=== PATIENT | female | born 1950 | race Caucasian/White ===

== ENCOUNTER 2017-08-08 00:03 | Emergency (ER) | payer MEDICARE, OTHER ==
[2017-08-08] MEDS ORDERED: oxyCODONE/Acetamin 5/325 MG* TAB PO ONE (01:44)
[2017-08-08 02:05] LABS: ABS Basophils 0 10^3/ul (0-0.2); ABS Eosinophils 0 10^3/ul (0-0.6); ABS Lymphocytes 0.4 10^3/ul (1.0-4.8); ABS Monocytes 0.2 10^3/ul (0-0.8); ABS Neutrophils 3.9 10^3/ul (1.5-7.7); ABS Nucleated RBC 0 10^3/ul; Eosinophil % 0.4 % (0-6); Hematocrit 40 % (35-47); Hemoglobin 13.8 g/dl (12.0-16.0); Lymphocyte % 7.8 % (25-47); Mean Corpuscular HGB Conc 35 g/dl (31-36); Mean Corpuscular Hemoglobin 32 pg (27-31); Mean Corpuscular Volume 93 fL (80-97); Mean Platelet Volume 9 um3 (7.4-10.4); Nucleated Red Blood Cells % 0.1; Platelet Count 190 10^3/ul (150-450); Red Blood Count 4.27 10^6/ul (4.0-5.4); Red Cell Distribution Width 13 % (10.5-15); White Blood Count 4.5 10^3/ul (3.5-10.8)
[2017-08-08 02:21] LABS: EGFR Non-African American 56.1 (>60)
[2017-08-08] MEDS ORDERED: Butalb/Acetamin/Caff TAB* 1 TAB PO ONE (03:07)
--- NOTE | 2017-08-08 03:12 | ED ---
Mathew Snyder Angela, scribed for Kelvin Eng on 08/08/17 at 0149 . Headache - HPI Summary HPI Summary: This pt is a 67 y/o female presenting to [facility] c/o headache since yesterday. Pt reports she has a stabbing pain in the posterior aspect of her head, once every 10 seconds. She states she has taken acetaminophen with mild relief, her pain would subside but would come back. She additionally reports left ear ache intermittently, fever. Pt went to see her PCP 3 days ago and was diagnosed with a UTI. Pt was placed on Bactrim and then on Amoxicillin. She denies chest pain, SOB, abd pain. Allergic to ibuprofen. Pt is not anticoagulants. - History Of Current Complaint Chief Complaint: EDHeadache Stated Complaint: HEAD PAIN Hx Obtained From: Patient Onset/Duration: Started days ago - 1, Still Present Currently Pain Is: Moderate Timing: Days - 1 Character: Sharp - stabbing Location of Headache: Occipital Aggravating Factor: Nothing Allevating Factors: Nothing Associated Signs And Symptoms: Fever, Other (Noted In Comments) - left ear ache intermittently. NEG: SOB, chest pain, abd pain - Allergies/Home Medications Allergies/Adverse Reactions: Allergies Allergy/AdvReac Type Severity Reaction Status Date / Time ibuprofen Allergy Abdominal Verified 08/08/17 00:15 Pain PMH/Surg Hx/FS Hx/Imm Hx Endocrine/Hematology History: Denies: Hx Diabetes Cardiovascular History: Denies: Hx Hypertension Infectious Disease History: No Infectious Disease History: Denies: Traveled Outside the [place] in Last 30 Days - Family History Known Family History: Positive: Cardiac Disease - Social History Alcohol Use: None Substance Use Type: Reports: None Smoking Status (MU): Never Smoked Tobacco Review of Systems Positive: Fever Positive: Ear Ache - left Negative: Chest Pain Negative: Shortness Of Breath Negative: Abdominal Pain Positive: Headache All Other Systems Reviewed And Are Negative: Yes Physical Exam - Summary Physical Exam Summary: Appearance: Well appearing, no pain distress Skin: warm, dry, reflects adequate perfusion Head/face: normal Eyes: EOMI, JAYLIN ENT: normal Neck: supple, nontender Respiratory: CTA, breath sounds present Cardiovascular: RRR, pulses symmetrical Abdomen: nontender, soft Bowel: present Musculoskeletal: normal, strength/ROM intact Neuro: normal, sensory motor intact, A&Ox3 Triage Information Reviewed: Yes Vital Signs On Initial Exam: Initial Vitals Temp Pulse Resp BP Pulse Ox 99.8 F 95 20 130/74 96 08/08/17 00:15 08/08/17 00:15 08/08/17 00:15 08/08/17 00:15 08/08/17 00:15 Vital Signs Reviewed: Yes - [place] Coma Scale Best Eye Response: 4 - Spontaneous Best Motor Response: 6 - Obeys Commands Best Verbal Response: 5 - Oriented Coma Scale Total: 15 Diagnostics - Vital Signs Vital Signs Temp Pulse Resp BP Pulse Ox 08/08/17 00:15 99.8 F 95 20 130/74 96 - Laboratory Lab Results: Lab Results 08/08/17 08/08/17 08/08/17 Range/Units 01:16 01:16 01:16 WBC 4.5 (3.5-10.8) 10^3/ul RBC 4.27 (4.0-5.4) 10^6/ul Hgb 13.8 (12.0-16.0) g/dl Hct 40 (35-47) % MCV 93 (80-97) fL MCH 32 H (27-31) pg MCHC 35 (31-36) g/dl RDW 13 (10.5-15) % Plt Count 190 (150-450) 10^3/ul MPV 9 (7.4-10.4) um3 Neut % (Auto) 85.7 H (38-83) % Lymph % (Auto) 7.8 L (25-47) % [place] % (Auto) 5.0 (0-7) % Eos % (Auto) 0.4 (0-6) % Baso % (Auto) 1.1 (0-2) % Absolute Neuts (auto) 3.9 (1.5-7.7) 10^3/ul Absolute Lymphs (auto) 0.4 L (1.0-4.8) 10^3/ul Absolute Monos (auto) 0.2 (0-0.8) 10^3/ul Absolute Eos (auto) 0 (0-0.6) 10^3/ul Absolute Basos (auto) 0 (0-0.2) 10^3/ul Absolute Nucleated RBC 0 10^3/ul Nucleated RBC % 0.1 INR (Anticoag Therapy) 1.00 (0.77-1.02) APTT 30.1 (26.0-36.3) seconds Sodium 137 (133-145) mmol/L Potassium 3.8 (3.5-5.0) mmol/L Chloride 104 (101-111) mmol/L Carbon Dioxide 25 (22-32) mmol/L Anion Gap 8 (2-11) mmol/L BUN 12 (6-24) mg/dL Creatinine 0.99 H (0.51-0.95) mg/dL Est GFR ( Amer) 72.2 (>60) Est GFR (Non-Af Amer) 56.1 (>60) BUN/Creatinine Ratio 12.1 (8-20) Glucose 115 H (70-100) mg/dL Calcium 9.2 (8.6-10.3) mg/dL Total Bilirubin 0.40 (0.2-1.0) mg/dL AST 19 (13-39) U/L ALT 12 (7-52) U/L Alkaline Phosphatase 51 (34-104) U/L Total Protein 6.9 (6.4-8.9) g/dL Albumin 4.1 (3.2-5.2) g/dL Globulin 2.8 (2-4) g/dL Albumin/Globulin Ratio 1.5 (1-3) Result Diagrams: 08/08/17 01:16 08/08/17 01:16 Lab Statement: Any lab studies that have been ordered have been reviewed, and results considered in the medical decision making process. - CT Brain CT CT Interpretation: No Acute Changes - IMPRESSION: No evidence of acute pathology. Dr. Eng has reviewed this radiology report. CT Interpretation Completed By: Radiologist Headache Course/Dx - Course Course Of Treatment: Pt is a 67 y/o female, with recent dx of UTI and on antibiotics, who presents with a headache since yesterday. Pt reports she has a stabbing pain in the posterior aspect of her head, once every 10 seconds. Bloodwork and brain CT were obtained. Head CT is negative. Pt will be discharged to home with follow up from her PCP. She will be given a prescription for Fioricet. - Diagnoses Differential Diagnosis/HQI/PQRI: CVA, Subdural Hematoma, Migraine, Sinus Headache, Subarachnoid Hemorrhage, Tension Headache Provider Diagnoses: Headache Discharge - Discharge Plan Condition: Stable Disposition: HOME Prescriptions: Butalb/Acetamin/Caff TAB* [Fioricet TAB*] 1 tab PO Q6H PRN #20 tab MDD 3 PRN Reason: Pain Patient Education Materials: General Headache (ED) Referrals: Anastacia Beck MD [Primary Care Provider] - 3 Days Additional Instructions: Please follow up with your primary care provider in 3 days. RETURN TO THE ED FOR ANY WORSENING SYMPTOMS. The documentation as recorded by the Mathew nixon Angela accurately reflects the service I personally performed and the decisions made by Albertina martell Emmanuel.
[2017-08-08 03:32] VITALS: BP 100/59
--- NOTE | 2017-08-08 08:11 | RAD ---
INDICATION: Headache COMPARISON: None. TECHNIQUE: Contiguous axial sections of the brain were obtained from the skull base to the vertex without contrast. FINDINGS: The ventricles, cisterns and sulci are within normal limits. The hirsch-white matter differentiation is adequately maintained and there is no sulcal effacement. No significant focal abnormality or mass effect is present. There is no evidence for intracranial hemorrhage. No significant focal osseous abnormality is present. The visualized portion of the paranasal sinuses appear clear. The mastoid air cells are well aerated bilaterally. IMPRESSION: Normal CT of the brain.
== END 2017-08-08 03:32 | disposition home or self-care (01) ==
LOC: ED 00:03
DX: R51 Headache (principal); R50.9 Fever, unspecified; H92.02 Otalgia, left ear
CPT/HCPCS: 36415; 70450; 80053; 85025; 85610; 85730; 99283; A9270-GY

== ENCOUNTER 2021-03-22 08:34 | Inpatient (IN) ==
[~2021-03-22 08:34] MED LIST: Buffered Lidocaine 1% SYRIN 1 ml INTRADERM ONE; Lactated Ringers 1000 ml BAG 1,000 ML IV SCH
[2021-03-22] MEDS ORDERED: Heparin 5000 UNITS/ML 1 mL VIAL ONE (08:57)
[2021-03-22] MEDS ORDERED: Midazolam 2 mg/2 ml VIAL 1 mg/ml 2 ml VIAL (2 mg) ONE (08:57)
[2021-03-22] MEDS ORDERED: Lidocaine 2% PF 5 ML VIAL ONE (09:01)
[2021-03-22] MEDS ORDERED: Propofol 10 MG/ML 20 ML BTL ONE (09:01)
[2021-03-22] MEDS ORDERED: fentaNYL 250 mcg/5 ml 50 MCG/ML 5 ml VIAL (250 MCG) ONE (09:07)
[2021-03-22] MEDS ORDERED: Rocuronium 50 mg VIAL 10 mg/ml 5 ml VIAL (50 mg) ONE ×2 (09:08→10:33)
[2021-03-22] MEDS ORDERED: Buffered Lidocaine 1% SYRIN 1 ml INTRADERM ONE (09:31)
[2021-03-22] MEDS ORDERED: Ertapenem 1 GM in NS 0.9% 50 ML IVPB ONE (10:00)
[2021-03-22] MEDS ORDERED: Bupivacaine 0.25% EPI 200,000 30 ML SDV ONE (10:26)
[2021-03-22 11:52] LABS: PCO2 Arterial 32 mmHg (35-45); PO2 Arterial 221 mmHg (80-100)
[2021-03-22] MEDS ORDERED: Dexamethasone IV 4 MG/ML VIAL 1 ml VIAL ONE (12:01)
[2021-03-22] MEDS ORDERED: Ondansetron 4 mg VIAL 2 MG/ML 2 ml VIAL ONE (12:01)
[2021-03-22] MEDS ORDERED: HYDROmorphone 1 MG/1 ML SYRINGE ONE (12:01)
[2021-03-22] MEDS ORDERED: Phenylephrine 40 mcg/mL 10mL (400mcg) SYRINGE ONE (13:57)
[2021-03-22 14:34] LABS: Hematocrit 32 % (35-47); Hemoglobin 10.6 g/dL (12.0-16.0); Mean Corpuscular HGB Conc 33 g/dL (31-36); Mean Corpuscular Hemoglobin 29 pg (27-31); Mean Corpuscular Volume 89 fL (80-97); Mean Platelet Volume 7.9 fL (7.4-10.4); PCO2 Arterial 44 mmHg (35-45); PO2 Arterial 233 mmHg (80-100); Platelet Count 261 10^3/uL (150-450); Red Cell Distribution Width 18 % (10-15); White Blood Count 5.7 10^3/uL (3.5-10.8)
[2021-03-22 14:38] LABS: ABS Lymphocytes 0.5 10^3/ul (1.0-4.8); ABS Monocytes 0.1 10^3/ul (0-0.8); Eosinophil % 0.2 %; Lymphocyte % 9.1 %
[2021-03-22] MEDS ORDERED: EPHEDrine (Pressors) 50 MG/ML VIAL ONE (15:56)
[2021-03-22] MEDS ORDERED: Acetaminophen IV 1 GM/100ML 100 ML IV ONE (16:18)
[2021-03-22] MEDS ORDERED: Naloxone 0.4 mg VIAL 0.4 mg/ml 1 ml VIAL IV PRN (16:35)
[2021-03-22] MEDS ORDERED: HYDROmorphone 1 MG/1 ML SYRINGE IV PRN (16:35)
[2021-03-22] MEDS ORDERED: DiMENhydriNATE IV 50 mg/ml 1 ml VIAL IV PUSH PRN (16:35)
[2021-03-22] MEDS ORDERED: fentaNYL 100 mcg/2 ml 50 MCG/ML VIAL IV PRN (16:35)
[2021-03-22] MEDS ORDERED: diPHENhydraMINE IV 50 MG/ML 1 ml VIAL (BENADRYL) IV PRN (16:35)
[2021-03-22] MEDS ORDERED: oxyCODONE/Acetamin 5/325 mg TAB PO PRN (17:11)
[2021-03-22] MEDS ORDERED: HYDROmorphone 1 MG/1 ML SYRINGE IV SLOW PU PRN (17:12)
[2021-03-22] MEDS ORDERED: HYDROmorphone 0.5 MG/0.5 ML SYRINGE IV SLOW PU PRN (17:12)
[2021-03-22] MEDS ORDERED: Ondansetron 4 mg VIAL 2 MG/ML 2 ml VIAL IV PRN (17:13)
[2021-03-22] MEDS: Acetaminophen IV 1 GM/100ML 100 ML IV SCH (22:33)
[2021-03-23] MEDS: Acetaminophen IV 1 GM/100ML 100 ML IV SCH ×4 (05:04→23:26)
[2021-03-23 05:57] LABS: Hematocrit 30 % (35-47); Hemoglobin 10.1 g/dL (12.0-16.0); Mean Corpuscular HGB Conc 34 g/dL (31-36); Mean Corpuscular Hemoglobin 30 pg (27-31); Mean Corpuscular Volume 90 fL (80-97); Mean Platelet Volume 8.2 fL (7.4-10.4); Platelet Count 210 10^3/uL (150-450); Red Blood Count 3.32 10^6 /uL (3.70-4.87); Red Cell Distribution Width 17 % (10-15); White Blood Count 6.3 10^3/uL (3.5-10.8)
[2021-03-23 06:01] LABS: ABS Lymphocytes 1.3 10^3/ul (1.0-4.8); ABS Monocytes 0.5 10^3/ul (0-0.8); ABS Neutrophils 4.5 10^3/ul (1.5-7.7); Eosinophil % 0.1 %; Lymphocyte % 19.9 %
[2021-03-23 06:12] LABS: Calcium 8.1 mg/dL (8.6-10.3); Potassium 3.6 mmol/L (3.5-5.0)
[2021-03-23] MEDS: Enoxaparin 30 MG/0.3 ML SYR SUBCUT SCH (07:57)
[2021-03-24] MEDS: Acetaminophen IV 1 GM/100ML 100 ML IV SCH ×3 (05:25→17:29)
[2021-03-24 05:53] LABS: Hematocrit 31 % (35-47); Hemoglobin 10.3 g/dL (12.0-16.0); Mean Corpuscular HGB Conc 33 g/dL (31-36); Mean Corpuscular Hemoglobin 30 pg (27-31); Mean Corpuscular Volume 90 fL (80-97); Mean Platelet Volume 8.3 fL (7.4-10.4); Platelet Count 222 10^3/uL (150-450); Red Blood Count 3.41 10^6 /uL (3.70-4.87); Red Cell Distribution Width 17 % (10-15); White Blood Count 4.9 10^3/uL (3.5-10.8)
[2021-03-24 06:01] LABS: ABS Basophils 0.1 10^3/ul (0-0.2); ABS Eosinophils 0.2 10^3/ul (0-0.6); ABS Lymphocytes 0.8 10^3/ul (1.0-4.8); ABS Monocytes 0.3 10^3/ul (0-0.8); ABS Neutrophils 3.5 10^3/ul (1.5-7.7); Eosinophil % 3.7 %; Lymphocyte % 16.9 %
[2021-03-24 06:07] LABS: Calcium 8.7 mg/dL (8.6-10.3); Potassium 3.5 mmol/L (3.5-5.0)
[2021-03-24 06:51] LABS: Anisocytosis 2+
[2021-03-24 06:52] LABS: Schistocytes 1+
[2021-03-24 06:53] LABS: Microcytosis 1+
[2021-03-24] MEDS: Enoxaparin 30 MG/0.3 ML SYR SUBCUT SCH (08:16)
[2021-03-25] MEDS: Acetaminophen IV 1 GM/100ML 100 ML IV SCH (00:10)
[2021-03-25] MEDS ORDERED: Acetaminophen IV 1 GM/100ML 100 ML IV SCH (06:00)
[2021-03-25 06:12] LABS: ABS Basophils 0.1 10^3/ul (0-0.2); ABS Eosinophils 0.2 10^3/ul (0-0.6); ABS Monocytes 0.2 10^3/ul (0-0.8); ABS Neutrophils 2.6 10^3/ul (1.5-7.7); Eosinophil % 4.4 %; Hematocrit 32 % (35-47); Hemoglobin 10.5 g/dL (12.0-16.0); Lymphocyte % 24.2 %; Mean Corpuscular HGB Conc 33 g/dL (31-36); Mean Corpuscular Hemoglobin 30 pg (27-31); Mean Corpuscular Volume 90 fL (80-97); Mean Platelet Volume 8.3 fL (7.4-10.4); Nucleated Red Blood Cells % 0.1; Platelet Count 238 10^3/uL (150-450); Red Cell Distribution Width 17 % (10-15); White Blood Count 4.1 10^3/uL (3.5-10.8)
[2021-03-25] MEDS: Enoxaparin 30 MG/0.3 ML SYR SUBCUT SCH (07:20)
[2021-03-25 08:18] VITALS: BP 116/56
== END 2021-03-25 10:50 | disposition home or self-care (01) | DRG 330 ==
LOC: AA 08:34 → SSU 18:46
PROVIDERS: ADMIT Surgery; ATTEND Surgery